=== PATIENT | female | born 1945 ===

== ENCOUNTER 2018-03-15 11:39 | Emergency (ER) | payer MEDICARE, MEDICAID ==
[2018-03-15 11:46] VITALS: BMI 23.0
[2018-03-15 11:49] VITALS: RESP 18
--- NOTE | 2018-03-15 14:15 | C.PDOC ---
History Of Present Illness 72 y/o female presents to ED c/o worsening anxiety for the last 4 months. Limited improvement with Xanax 0.25mg BID. Pt states tried to increase dose to 0.5mg BID but "made me too sleepy". Per family, pt with "OCD-like" behavior. No prior history of OCD, anxiety. Currently active treatment for metastatic cancer. No hallucinations, delusions, SI/SA. Currently not under psychiatric care, Xanax from PMD. WORSENING ANXIETY X 4 MO. LIMITED IMPROVE W XANAX 0.25 BID. PS TRIED TO INCR DOSE TO 0.5 MG BID BUT "MADE ME TOO SLEEPY". PER FAMILY, PT W OCD-LIKE" BEHAVIOR. NO PRIOR HO OCD, ANXIETY. CURRENTLY ACTIVE TREATMENT FOR MET CANCER. NO HALLUCINATIONS, DELUSIONS, SI/SA. CURRENTLY NOT UNDER PSYCHIATRIC CARE, XANAX FROM PMD. EXAM NAD NONTOXIC PSYCH CALM COOPERATIVE NO ACUTE PSYCHOSIS, INTOX. NO ACTIVE DELUSIONS, SI/SA REMAINDER NEG Time Seen by Provider: 03/15/18 11:58 Chief Complaint (Nursing): Anxiety History Per: Patient History/Exam Limitations: no limitations Onset/Duration Of Symptoms: Days Current Symptoms Are (Timing): Still Present Associated Symptoms: denies: Suicidal Thoughts, Suicidal Plan Involuntary Hold By: None Recent travel outside of the [place]: No Additional History Per: Patient Past Medical History Reviewed: Historical Data, Nursing Documentation, Vital Signs Vital Signs: Last Vital Signs Temp 98.7 F 03/15/18 14:32 Pulse 81 03/15/18 14:32 Resp 18 03/15/18 14:32 BP 161/86 H 03/15/18 14:32 Pulse Ox 100 03/15/18 14:32 Family History: States: Unknown Family Hx - Social History Hx Alcohol Use: No Hx Substance Use: No Review Of Systems Except As Marked, All Systems Reviewed And Found Negative. Constitutional: Negative for: Fever, Chills Cardiovascular: Negative for: Chest Pain, Palpitations Respiratory: Negative for: Shortness of Breath Psych: Positive for: Anxiety. Negative for: Suicidal ideation Physical Exam - Physical Exam Appears: Non-toxic, No Acute Distress Skin: Normal Color, Warm, Dry Head: Atraumatic, Normacephalic Eye(s): bilateral: Normal Inspection Oral Mucosa: Moist Neck: Supple Cardiovascular: Rhythm Regular Respiratory: Normal Breath Sounds, No Rales, No Rhonchi, No Wheezing Gastrointestinal/Abdominal: Soft, No Tenderness Extremity: Bilateral: Atraumatic, Normal ROM Neurological/Psych: Oriented x3, Normal Speech, Other (calm, cooperative, no acute psychosis, intox. No active delusions, SI/SA) ED Course And Treatment O2 Sat by Pulse Oximetry: 98 (RA) Pulse Ox Interpretation: Normal Reevaluation Time: 14:13 Reassessment Condition: Unchanged (SP EVAL CRISIS, CLEARED FOR OUTPT FU. APPT SCHEDULED.) Disposition Counseled Patient/Family Regarding: Diagnosis, Need For Followup - Disposition Referrals: [facility] [Provider Group] Disposition: HOME/ ROUTINE Disposition Time: 14:15 Condition: GOOD Prescriptions: Ibuprofen [Motrin] 600 mg PO Q6 #30 tab Instructions: Anxiety, Adult (DC) Forms: [employer] (Urdu) Print Language: OCCITAN - Clinical Impression Clinical Impression: Anxiety - Scribe Statement The provider has reviewed the documentation as recorded by the Scribe KP All medical record entries made by the Scribe were at my direction and personally dictated by me. I have reviewed the chart and agree that the record accurately reflects my personal performance of the history, physical exam, medical decision making, and the department course for this patient. I have also personally directed, reviewed, and agree with the discharge instructions and disposition.
[2018-03-15 14:34] VITALS: BP 161/86; PULSE 81; TEMP 98.7
[2018-03-15 14:38] VITALS: O2SAT 98
== END 2018-03-15 14:34 | disposition home or self-care (01) ==
LOC: C.ER 11:39
DX: F41.9 Anxiety disorder, unspecified (principal)

== ENCOUNTER 2018-04-13 15:41 | Emergency (ER) | payer MEDICARE, MEDICAID ==
[2018-04-13 15:42] VITALS: BMI 23.0
[2018-04-13 16:15] VITALS: RESP 16; TEMP 98.6
--- NOTE | 2018-04-13 17:19 | RAD ---
Right wrist four views History: Fracture. Comparison: None available. Findings: Diffuse osteopenia. Horizontally oriented mildly distracted fracture deformity through the distal radius at level of the physis. Prominence of the scapholunate interval measuring up to 4 millimeters. Prominent degenerative changes with mild subluxation at the 1st carpometacarpal joint space. Impression: Diffuse osteopenia. Horizontally oriented mildly distracted fracture deformity through the distal radius at level of the physis. Prominence of the scapholunate interval measuring up to 4 millimeters. Prominent degenerative changes with mild subluxation at the 1st carpometacarpal joint space. Correlation with CT scan may be helpful if clinically indicated.
--- NOTE | 2018-04-13 17:22 | RAD ---
Right forearm two views History: Wrist fracture. Comparison: None available. Findings: Diffuse osteopenia. Horizontally oriented mildly distracted fracture deformity through the distal radius at level of the physis. Prominence of the scapholunate interval measuring up to 4 millimeters. Prominent degenerative changes with mild subluxation at the 1st carpometacarpal joint space. Impression: Diffuse osteopenia. Horizontally oriented mildly distracted fracture deformity through the distal radius at level of the physis. Prominence of the scapholunate interval measuring up to 4 millimeters. Prominent degenerative changes with mild subluxation at the 1st carpometacarpal joint space. Correlation with CT scan may be helpful if clinically indicated.
[2018-04-13 17:29] VITALS: BP 160/82; PULSE 78; O2SAT 100
--- NOTE | 2018-04-13 17:51 | C.PDOC ---
History Of Present Illness 72 year old female presents to the emergency department complaining of a fracture to her right wrist. Patient states she was seen by an orthopedist in [place] on 04/10/18 and that the doctor applied a sugar tong splint on her; however, the patient states that the splint was uncomfortable and resulted in swollen fingers. She requests splint to be replaced with a new one. Patient denies weakness or numbness. Time Seen by Provider: 04/13/18 16:16 Chief Complaint (Nursing): Upper Extremity Problem/Injury History Per: Patient History/Exam Limitations: no limitations Onset/Duration Of Symptoms: Days Current Symptoms Are (Timing): Still Present Past Medical History Reviewed: Historical Data, Nursing Documentation, Vital Signs Vital Signs: Last Vital Signs Temp 98.6 F 04/13/18 17:28 Pulse 78 04/13/18 17:28 Resp 16 04/13/18 17:28 BP 160/82 H 04/13/18 17:28 Pulse Ox 100 04/13/18 20:58 - Medical History PMH: HTN (History of) Denies: Diabetes, Hepatitis, HIV, Seizures, Sexually Transmitted Disease Family History: States: No Known Family Hx - Social History Hx Alcohol Use: No Hx Substance Use: No Review Of Systems Except As Marked, All Systems Reviewed And Found Negative. Constitutional: Negative for: Fever, Chills Cardiovascular: Negative for: Chest Pain Respiratory: Negative for: Shortness of Breath Gastrointestinal: Negative for: Nausea, Vomiting Musculoskeletal: Positive for: Other (Wrist pain and swollen fingers on right wrist ) Neurological: Negative for: Weakness, Numbness Physical Exam - Physical Exam Appears: Non-toxic, No Acute Distress Skin: Warm, Dry, No Rash Head: Atraumatic, Normacephalic Eye(s): bilateral: Normal Inspection Oral Mucosa: Moist Neck: Supple Extremity: Tenderness (to R wrist), Swelling (of R wrist and fingers), Other (R hand warm, not cyanotic, not pale) Pulses: Right Radial: Normal Neurological/Psych: Oriented x3, Normal Speech, Normal Cognition Gait: Steady ED Course And Treatment O2 Sat by Pulse Oximetry: 100 (RA) Pulse Ox Interpretation: Normal - Other Rad Right Wrist X-Ray X-Ray: Read By Radiologist Interpretation: Findings: Diffuse osteopenia. Horizontally oriented mildly distracted fracture deformity through the distal radius at level of the physis. Prominence of the scapholunate interval measuring up to 4 millimeters. Prominent degenerative changes with mild subluxation at the 1st carpometacarpal joint space. Impression: Diffuse osteopenia. Horizontally oriented mildly distracted fracture deformity through the distal radius at level of the physis. Prominence of the scapholunate interval measuring up to 4 millimeters. Prominent degenerative changes with mild subluxation at the 1st carpometacarpal joint space. Correlation with CT scan may be helpful if clinically indicated. Right Forearm X-Ray X-Ray: Read By Radiologist Interpretation: Findings: Diffuse osteopenia. Horizontally oriented mildly distracted fracture deformity through the distal radius at level of the physis. Prominence of the scapholunate interval measuring up to 4 millimeters. Prominent degenerative changes with mild subluxation at the 1st carpometacarpal joint space. Impression: Diffuse osteopenia. Horizontally oriented mildly distracted fracture deformity through the distal radius at level of the physis. Prominence of the scapholunate interval measuring up to 4 millimeters. Prominent degenerative changes with mild subluxation at the 1st carpometacarpal joint space. Correlation with CT scan may be helpful if clinically indicated. Progress Note: Right forearm and right wrist x-rays ordered. Splint was applied by CP and checked by me; however, splint was placed incorrectly with all finger placed on the splint. I offered patient to redo application of splint by myself , but the patient refused and she will f/u with ortho tomorrow. Disposition - Disposition Referrals: Jose Lopez III, MD [Staff Provider] - Disposition: HOME/ ROUTINE Disposition Time: 17:50 Condition: STABLE Additional Instructions: FOLLOW UP WITH ORTHOPEDIST WITHIN 1-2 DAYS. RETURN TO ED IF FEEL WORSE. Instructions: Radius Fracture (DC) Forms: [employer] (Pakistani) - Clinical Impression Clinical Impression: Fracture of distal end of radius - PA / YARD CLEANER / Resident Statement MD/DO has reviewed & agrees with the documentation as recorded. - Scribe Statement The provider has reviewed the documentation as recorded by the Scribe All medical record entries made by the Scribe were at my direction and personally dictated by me. I have reviewed the chart and agree that the record accurately reflects my personal performance of the history, physical exam, medical decision making, and the department course for this patient. I have also personally directed, reviewed, and agree with the discharge instructions and disposition.
== END 2018-04-13 17:53 | disposition home or self-care (01) ==
LOC: C.ER 15:41
DX: S52.591D Other fractures of lower end of right radius, subsequent encounter for closed fracture with routine healing (principal); X58.XXXD Exposure to other specified factors, subsequent encounter